=== PATIENT | male | born 1995 | race Caucasian/White ===

== ENCOUNTER 2019-02-10 15:32 | Emergency (ER) | payer OTHER ==
[~2019-02-10] VITALS: Ht 175.3 cm; Wt 77.1 kg
[2019-02-10 15:32] VITALS: BP_SYST 136
--- NOTE | 2019-02-10 15:35 | NUR ---
BROUGHT IN BY DEPUTY HOWE FROM [facility], PLACED IN HALLWAY AND TRIAGED. BLOOD DRAW TO BE DONE.
--- NOTE | 2019-02-10 16:00 | NUR ---
Patient to ER bed 5 to gown for evaluation. Side rails up.
--- NOTE | 2019-02-10 16:05 | NUR ---
ER at bedside examining patient.
--- NOTE | 2019-02-10 16:35 | NUR ---
Written and verbal consent obtained from patient for blood alcohol, name and verified by patient. Disinfected patient's skin with betadine that did not contain alcohol or other volatile organic compound. Collected the blood from the subject named by venipuncture, in the presence of Officer Jasmyn. Used a sterile, dry hypodermic needle and dry vacuum blood collection. Two dry vacuum blood collection was supplied by the officer named above. Withdrew a specimen of blood from RAC of the subject named above. Inverted both blood tube several times to ensure that the preservative and anticoagulant were thoroughly mixed in the blood specimen. I initialed both blood tube label for identification. The labeled blood tubes was handed directly to the Officer named above. The blood tubes stopper remained in place while I had possession of the blood tubes. The Officer placed tubes into envelope and sealed it in my presence. Envelope initialed by myself and Officer named above. Patient tolerated well, bandage applied, and bleeding controlled.
--- NOTE | 2019-02-10 16:40 | NUR ---
pt dc'd under custodail care. Pt left in stable condition
[2019-02-10 16:45] VITALS: BP_SYST 136
== END 2019-02-10 16:40 | disposition home or self-care (01) ==
LOC: SED 15:32
DX: Z02.83 Encounter for blood-alcohol and blood-drug test (principal)
CPT/HCPCS: 99283

== ENCOUNTER 2023-07-24 19:17 | Emergency (ER) | payer OTHER ==
[~2023-07-24] VITALS: Ht 177.8 cm; Wt 75.7 kg
[2023-07-24 20:03] VITALS: BP_SYST 148; PULSE 76; RESP 20; TEMP 99.5; O2SAT 100
[2023-07-24] MEDS ORDERED: BACITRACIN 1 GM OINT TP ONE (20:31)
[2023-07-24] MEDS ORDERED: IBUP-1969 PO (20:37)
[2023-07-24] MEDS ORDERED: BACEYEO OP (20:37)
[2023-07-24] MEDS ORDERED: BACI28.433 TP (21:00)
[2023-07-24 21:14] VITALS: BP_SYST 148; PULSE 76; RESP 20; TEMP 99.5; O2SAT 100
== END 2023-07-24 21:26 | disposition home or self-care (01) ==
LOC: SED 19:17
DX: S50.811A Abrasion of right forearm, initial encounter (principal); S49.91XA Unspecified injury of right shoulder and upper arm, initial encounter; Z79.899 Other long term (current) drug therapy; Z79.2 Long term (current) use of antibiotics; V89.2XXA Person injured in unspecified motor-vehicle accident, traffic, initial encounter; Y93.89 Activity, other specified; Y92.89 Other specified places as the place of occurrence of the external cause; Y99.8 Other external cause status
CPT/HCPCS: 73030; 99283